=== PATIENT | female | born 2000 | race Caucasian/White ===

== ENCOUNTER 2020-10-08 20:00 | Inpatient (IN) | payer OTHER ==
[~2020-10-08] VITALS: Ht 165.1 cm; Wt 95.7 kg
[2020-10-08 20:57] LABS: HCT 33.7 % (37.0-47.0); HGB 11.5 g/dl (12.5-16.0); MCH 32.6 pg (25.0-31.0); MCHC 34.1 g/dL (32.0-36.0); MCV 95.5 fL (78.0-100.0); MPV 12.1 fL (6.0-9.5); RBC 3.53 M/uL (4.20-5.40); RDW 13.2 % (11.5-14.0); WBC 6.9 K/uL (4.0-10.5)
[2020-10-08 20:59] LABS: BILIRUBIN NEGATIVE (NEGATIVE); BLOOD TRACE-INTACT Ery/uL (NEGATIVE); CLARITY CLEAR (CLEAR); COLOR YELLOW (YELLOW); GLUCOSE (U) TRACE mg/dL (NORMAL); LEUKOCYTES 3+ Leu/uL (NEGATIVE); NITRITE NEGATIVE (NEGATIVE); PROTEIN NEGATIVE (NEGATIVE); SPECIFIC GRAVITY 1.015 (1.001-1.030); UROBILINOGEN 0.2 mg/dL (0.2-1.0); pH 6.5 (5.0-9.0)
[2020-10-08 21:02] LABS: BARBITURATES NEGATIVE (NEGATIVE); ECSTASY (MDMA) NEGATIVE (NEGATIVE); MARIJUANA (THC) NEGATIVE (NEGATIVE); METHADONE NEGATIVE (NEGATIVE); OPIATES NEGATIVE (NEGATIVE)
[2020-10-08 21:03] LABS: AMPHETAMINES NEGATIVE (NEGATIVE); OXYCODONE NEGATIVE (NEGATIVE)
[2020-10-08 21:04] LABS: BACTERIA 2+; SQUAMOUS EPITHELIAL CELLS 20-50
[2020-10-10 05:40] LABS: HCT 31.9 % (37.0-47.0); HGB 10.8 g/dl (12.5-16.0); MCH 32.7 pg (25.0-31.0); MCHC 33.9 g/dL (32.0-36.0); MCV 96.7 fL (78.0-100.0); MPV 12.3 fL (6.0-9.5); RBC 3.3 M/uL (4.20-5.40)
[2020-10-10 05:43] LABS: WBC 12.1 K/uL (4.0-10.5)
== END 2020-10-11 14:25 | disposition home or self-care (01) | DRG 806 ==
LOC: FOD 20:00 → FOB 20:05 → FOD 20:10 → FOB 20:11
PROVIDERS: ADMIT Obstetrics & Gynecology
PROC: 4A1HX4Z Monitoring of Products of Conception, Cardiac Electrical Activity, External Approach (ICD-10-PCS; principal; 2020-10-08)
PROC: 3E0P7VZ Introduction of Hormone into Female Reproductive, Via Natural or Artificial Opening (ICD-10-PCS; 2020-10-08)
PROC: 10E0XZZ Delivery of Products of Conception, External Approach (ICD-10-PCS; 2020-10-09)
PROC: 0KQM0ZZ Repair Perineum Muscle, Open Approach (ICD-10-PCS; 2020-10-09)
DX: O99.214 Obesity complicating childbirth (principal); D62 Acute posthemorrhagic anemia; Z37.0 Single live birth; E66.9 Obesity, unspecified; O70.1 Second degree perineal laceration during delivery; Z3A.39 39 weeks gestation of pregnancy; O99.334 Smoking (tobacco) complicating childbirth; F17.200 Nicotine dependence, unspecified, uncomplicated; F12.90 Cannabis use, unspecified, uncomplicated; Z20.822 Contact with and (suspected) exposure to COVID-19; Z79.82 Long term (current) use of aspirin; Z80.9 Family history of malignant neoplasm, unspecified
CPT/HCPCS: 36415; 80305; 81001; 84112; J2300; J2405; J7120; U0002